=== PATIENT | female | born 1990 | race Caucasian/White ===

== ENCOUNTER 2016-08-01 11:36 | Emergency (ER) | payer SELFPAY ==
[~2016-08-01] VITALS: Ht 165.1 cm; Wt 68.2 kg
[~2016-08-01 11:36] MED LIST: ALBUTEROL SULFAT3 M3 INH; ALBUTEROL0.09 MG/A1 IH; ALBUTEROL0.83 MG/ML IH; AMBIEN5 MG PO; AMOXICILLIN 50500 MG PO; AMOXICILLIN 8751 TAB PO; AMOXICILLIN/CLA1 TA1; ASMANEX INHALER; AUGMENTIN; CEPHALEXIN500 M1 PO; CLEOCIN HCL300 MG PO; DOXYCYCLINE PO; FERROUS SULFATE65 MG PO; HUMALOG100 U/ML SC; HUMALOG100 U/ML SQ; IMPLANON68 MG ID; INSULIN HUMA100 U/ML SC; LANTIS SQ; LANTUS100 U/ML SC; LANTUS100 U/ML SQ; LORTAB 5/500 501 TAB PO; MOTRIN 600600 MG/TAB PO; NAPROSYN500 MG PO; NORCO 325 MG-51 TAB PO; OMNICEF 300MG300 MG PO; PERCOCET 325 MG1 TA2 PO; PNV-DHA1 SGL PO; PREDNISONE20 MG PO; PRENATAL1 TA1; PRINIVIL2.5 MG PO; REGLAN10 MG PO; SLOW FE45 MG PO; TUMS500 MG PO; VENTOLIN0.09 MG IH; VIBRAMYCIN HYC100 MG PO; XOPENEX 0.0.63 MG/3 IH; ZANTAC 7575 MG PO; ZITHROMAX TRI-500 MG PO; ZITHROMAX Z PA250 MG PO; ZOFRAN 4MG T4 MG/TAB PO; ZOFRAN4 M1 PO; ZOMIG 2.5MG2.5 MG PO; ZOVIRAX51; [UNRECOGNIZED DRUG - REMARK]
[2016-08-01 11:39] VITALS: TEMP 97.7
[2016-08-01 12:25] LABS: BASO # 0.1 (0.0-0.2); BASO % 0.7 % (0.0-2.0); EOS % 0.2 % (0-4.0); GRAN # 10.7 (1.4-6.5); GRAN % 80.9 % (42.2-75.2); HEMATOCRIT 39.8 % (37.0-47.0); LYMPH # 1.8 (1.2-3.4); LYMPH % 13.9 % (20.0-51.0); MEAN CELL VOLUME 79 fl (80.0-100.0); MEAN CORPUSCULAR HEMOGLOBIN 26 pg (27.0-31.0); MEAN CORPUSCULAR HGB CONC 33 g/dl (33.0-37.0); MEAN PLATELET VOLUME 10.8 fl (7.4-10.4); MONO # 0.5 (0.1-0.6); PLATELET COUNT 309 K/mm3 (130-400); RED BLOOD COUNT 5.02 M/mm3 (4.10-5.30); REDCELL DISTRIBUTION WIDTH-CV 14.8 % (11.5-14.5); WHITE BLOOD COUNT 13.2 K/mm3 (4.8-10.8)
[2016-08-01 12:40] LABS: PH 5 (5-8); URINE APPEARANCE Hazy; URINE BACTERIA None Seen /hpf; URINE BILIRUBIN Negative (NEGATIVE); URINE BLOOD Negative (NEGATIVE); URINE COLOR Yellow; URINE GLUCOSE Negative (NEGATIVE); URINE KETONE Trace (NEGATIVE); URINE UROBILINOGEN Negative (NEGATIVE)
[2016-08-01 12:46] LABS: ADJUSTED CALCIUM 8.7 mg/dL (8.4-10.2); ALANINE AMINOTRANSFERASE 24 U/L (9-52); ALBUMIN 4.6 gm/dL (3.5-5.0); ALKALINE PHOSPHATASE 92 U/L (50-136); ANION GAP 14 mmol/L (7-16); BILIRUBIN,TOTAL 0.5 mg/dL (0.0-1.0); BLOOD UREA NITROGEN 10 mg/dL (7-17); CALCIUM 9.2 mg/dL (8.4-10.2); CARBON DIOXIDE 24 mmol/L (22-30); CHLORIDE 101 mmol/L (98-107); CREATININE, serum 0.56 mg/dL (0.52-1.25); GLUCOSE 54 mg/dL (74-106); POTASSIUM 3.9 mmol/L (3.4-5.0); SODIUM 139 mmol/L (137-145)
[2016-08-01] MEDS ORDERED: ZOFRAN 4MG T4 MG/TAB PO (14:42)
[2016-08-01 14:53] VITALS: BP 110/69; PULSE 82
== END 2016-08-01 14:56 | disposition home or self-care (01) ==
LOC: COL.ER 11:36
PROVIDERS: Nurse Practitioner
DX: E10.9 Type 1 diabetes mellitus without complications (principal); Z79.4 Long term (current) use of insulin; R11.10 Vomiting, unspecified; N39.0 Urinary tract infection, site not specified
CPT/HCPCS: J0696; J1200; J1885; J2405; J2765; J3010; J7030

== ENCOUNTER 2016-08-27 23:48 | Emergency (ER) | payer SELFPAY ==
[~2016-08-27] VITALS: Ht 165.1 cm; Wt 72.7 kg
[2016-08-27 23:52] VITALS: TEMP 98.5
[2016-08-28 00:17] LABS: BASO # 0.1 (0.0-0.2); BASO % 0.7 % (0.0-2.0); EOS # 0.2 (0.0-0.7); EOS % 1.5 % (0-4.0); GRAN # 7.2 (1.4-6.5); GRAN % 54.7 % (42.2-75.2); LYMPH # 4.5 (1.2-3.4); LYMPH % 34.5 % (20.0-51.0); MEAN CELL VOLUME 79 fl (80.0-100.0); MEAN CORPUSCULAR HGB CONC 33 g/dl (33.0-37.0); MEAN PLATELET VOLUME 10.8 fl (7.4-10.4); MONO # 1.1 (0.1-0.6); MONO % 8.2 % (1.7-9.3); PLATELET COUNT 293 K/mm3 (130-400); RED BLOOD COUNT 4.49 M/mm3 (4.10-5.30); REDCELL DISTRIBUTION WIDTH-CV 14.9 % (11.5-14.5); WHITE BLOOD COUNT 13.1 K/mm3 (4.8-10.8)
[2016-08-28 00:19] LABS: HEMATOCRIT 35.5 % (37.0-47.0); HEMOGLOBIN 11.6 g/dl (12.5-16.0); MEAN CORPUSCULAR HEMOGLOBIN 26 pg (27.0-31.0)
[2016-08-28 00:27] LABS: CALCIUM 8.8 mg/dL (8.4-10.2); CREATININE, serum 0.49 mg/dL (0.52-1.25); POTASSIUM 3.3 mmol/L (3.4-5.0)
[2016-08-28 00:34] LABS: PH 6 (5-8); URINE APPEARANCE Clear; URINE BACTERIA None Seen /hpf; URINE BILIRUBIN Negative (NEGATIVE); URINE BLOOD Negative (NEGATIVE); URINE COLOR Yellow; URINE GLUCOSE Negative (NEGATIVE); URINE KETONE Trace (NEGATIVE); URINE RBC 0-2 /hpf; URINE WBC 0-2 /hpf
[2016-08-28] MEDS ORDERED: ULTRAM 50MG TAB50 MG PO (01:27)
[2016-08-28 01:38] VITALS: BP 108/62; PULSE 89
== END 2016-08-28 01:40 | disposition home or self-care (01) ==
LOC: COL.ER 23:48
PROVIDERS: Emergency Medicine
DX: R10.2 Pelvic and perineal pain (principal); E11.9 Type 2 diabetes mellitus without complications; E78.00 Pure hypercholesterolemia, unspecified; F17.210 Nicotine dependence, cigarettes, uncomplicated; Z79.4 Long term (current) use of insulin; Z87.19 Personal history of other diseases of the digestive system; Z98.51 Tubal ligation status; Z98.890 Other specified postprocedural states
CPT/HCPCS: J1170; J1885; Q9967

== ENCOUNTER 2017-11-18 21:31 | Emergency (ER) | payer OTHER ==
[~2017-11-18] VITALS: Ht 165.1 cm; Wt 65.9 kg
[~2017-11-18 21:31] MED LIST changes: +ULTRAM 50MG TAB50 MG PO
[2017-11-18 21:34] VITALS: TEMP 98.2
[2017-11-18] MEDS ORDERED: PREDNISONE20 MG PO (22:27)
[2017-11-18] MEDS ORDERED: CEPHALEXIN500 M1 PO (22:27)
[2017-11-18 22:45] VITALS: BP 111/69; PULSE 93
[2017-11-18] MEDS ORDERED: LEVEMIR FLEX100 U/ML SQ (22:48)
== END 2017-11-18 22:55 | disposition home or self-care (01) ==
LOC: COL.ER 21:31
DX: T63.441A Toxic effect of venom of bees, accidental (unintentional), initial encounter (principal); M79.89 Other specified soft tissue disorders; E10.9 Type 1 diabetes mellitus without complications; D64.9 Anemia, unspecified; F17.210 Nicotine dependence, cigarettes, uncomplicated
CPT/HCPCS: J7512

== ENCOUNTER 2018-01-06 19:36 | Emergency (ER) | payer OTHER ==
[~2018-01-06] VITALS: Ht 165.1 cm; Wt 65.9 kg
[~2018-01-06 19:36] MED LIST changes: +LEVEMIR FLEX100 U/ML SQ
[2018-01-06 19:39] VITALS: BP 135/77; TEMP 98.3
[2018-01-06] MEDS ORDERED: PREDNISONE20 MG PO (20:02)
[2018-01-06 20:17] VITALS: PULSE 102
[2018-01-06] MEDS ORDERED: ZYRTEC 10MG10 MG PO (20:20)
== END 2018-01-06 20:17 | disposition home or self-care (01) ==
LOC: COL.ER 19:36
DX: R21 Rash and other nonspecific skin eruption (principal); F17.210 Nicotine dependence, cigarettes, uncomplicated; E11.9 Type 2 diabetes mellitus without complications; Z79.4 Long term (current) use of insulin; Z98.890 Other specified postprocedural states; Z98.51 Tubal ligation status

== ENCOUNTER 2018-03-29 12:39 | Emergency (ER) | payer BC ==
[~2018-03-29] VITALS: Ht 165.1 cm; Wt 63.6 kg
[~2018-03-29 12:39] MED LIST changes: +ZYRTEC 10MG10 MG PO
[2018-03-29 13:12] LABS: COLLECTION METHOD CLEAN CATCH
[2018-03-29] MEDS ORDERED: ZOFRAN ODT4 MG PO ×2 (13:17→15:21)
[2018-03-29] MEDS ORDERED: PHENERGAN 25 TA25 MG PO ×2 (13:17→15:21)
[2018-03-29 13:19] LABS: BASO % 0.4 % (0.0-2.0); EOS % 0.4 % (0-4.0); GRAN # 5.7 (1.4-6.5); GRAN % 81.6 % (42.2-75.2); HEMATOCRIT 39.5 % (37.0-47.0); HEMOGLOBIN 12.5 g/dl (12.5-16.0); LYMPH # 0.9 (1.2-3.4); LYMPH % 13.4 % (20.0-51.0); MEAN CELL VOLUME 78 fl (80.0-100.0); MEAN CORPUSCULAR HEMOGLOBIN 25 pg (27.0-31.0); MEAN CORPUSCULAR HGB CONC 32 g/dl (33.0-37.0); MEAN PLATELET VOLUME 10.9 fl (7.4-10.4); MONO # 0.3 (0.1-0.6); MONO % 4.1 % (1.7-9.3); PLATELET COUNT 296 K/mm3 (130-400); RED BLOOD COUNT 5.04 M/mm3 (4.10-5.30); REDCELL DISTRIBUTION WIDTH-CV 16.7 % (11.5-14.5)
[2018-03-29 13:29] LABS: ALBUMIN 3.8 gm/dL (3.5-5.0); BILIRUBIN,TOTAL 0.2 mg/dL (0.0-1.0); CALCIUM 8.7 mg/dL (8.4-10.2); CREATININE, serum 0.6 mg/dL (0.52-1.25); POTASSIUM 3.7 mmol/L (3.4-5.0); TOTAL PROTEIN 6.8 gm/dL (6.4-8.2)
[2018-03-29 13:42] LABS: MUCOUS Present /lpf; PH 5 (5-8); URINE APPEARANCE Cloudy; URINE BACTERIA Rare /hpf; URINE BILIRUBIN Positive (NEGATIVE); URINE BLOOD 2+ (NEGATIVE); URINE COLOR Amber; URINE GLUCOSE Negative (NEGATIVE); URINE KETONE Trace (NEGATIVE); URINE LEUKOCYTE ESTERASE Negative (NEGATIVE); URINE NITRATE Negative (NEGATIVE); URINE PROTEIN(semi-quant) 2+ (NEGATIVE)
[2018-03-29 14:19] VITALS: TEMP 99.1
[2018-03-29 16:30] VITALS: BP 110/58; PULSE 114
== END 2018-03-29 16:32 | disposition home or self-care (01) ==
LOC: COL.ER 12:39
PROVIDERS: Emergency Medicine
DX: J06.9 Acute upper respiratory infection, unspecified (principal); R19.7 Diarrhea, unspecified; R11.2 Nausea with vomiting, unspecified; E10.9 Type 1 diabetes mellitus without complications; F17.210 Nicotine dependence, cigarettes, uncomplicated
CPT/HCPCS: J2060; J2405; J2550; J7030

== ENCOUNTER 2019-09-06 20:33 | Emergency (ER) | payer SELFPAY ==
[~2019-09-06] VITALS: Ht 165.1 cm; Wt 63.6 kg
[~2019-09-06 20:33] MED LIST changes: +PHENERGAN 25 TA25 MG PO; +ZOFRAN ODT4 MG PO
[2019-09-06 20:40] VITALS: TEMP 98
[2019-09-06] MEDS ORDERED: SYNTHROID 0.0.025 MG PO (20:48)
[2019-09-06 21:04] LABS: COLLECTION METHOD CLEAN CATCH
[2019-09-06 21:07] LABS: BASO # 0.1 (0.0-0.2); BASO % 0.8 % (0.0-2.0); EOS # 0.2 (0.0-0.7); EOS % 2.9 % (0-4.0); GRAN # 2.9 (1.4-6.5); GRAN % 35.4 % (42.2-75.2); LYMPH # 4.5 (1.2-3.4); LYMPH % 54.5 % (20.0-51.0); MEAN CELL VOLUME 75 fl (80.0-100.0); MEAN CORPUSCULAR HGB CONC 31 g/dl (33.0-37.0); MEAN PLATELET VOLUME 10.3 fl (7.4-10.4); MONO # 0.5 (0.1-0.6); MONO % 6.3 % (1.7-9.3); PLATELET COUNT 302 K/mm3 (130-400); RED BLOOD COUNT 4.17 M/mm3 (4.10-5.30); REDCELL DISTRIBUTION WIDTH-CV 17.7 % (11.5-14.5)
[2019-09-06 21:14] LABS: HEMATOCRIT 31.2 % (37.0-47.0); HEMOGLOBIN 9.8 g/dl (12.5-16.0); MEAN CORPUSCULAR HEMOGLOBIN 24 pg (27.0-31.0)
[2019-09-06 21:16] LABS: BILIRUBIN,TOTAL 0.3 mg/dL (0.0-1.0); CALCIUM 8.7 mg/dL (8.4-10.2); CREATININE, serum 0.62 (0.52-1.25); MUCOUS Present /lpf; PH 5 (5-8); POTASSIUM 3.5 mmol/L (3.4-5.0); SQUAMOUS EPITHELIAL None Seen /hpf; TOTAL PROTEIN 6.9 gm/dL (6.4-8.2); URINE APPEARANCE Cloudy; URINE BACTERIA None Seen /hpf; URINE BILIRUBIN Negative (NEGATIVE); URINE BLOOD 3+ (NEGATIVE); URINE COLOR Red; URINE GLUCOSE Negative (NEGATIVE); URINE KETONE Negative (NEGATIVE); URINE LEUKOCYTE ESTERASE Negative (NEGATIVE); URINE NITRATE Negative (NEGATIVE); URINE PROTEIN(semi-quant) 2+ (NEGATIVE); URINE RBC >50 /hpf
[2019-09-06 21:35] VITALS: BP 110/70; PULSE 80
[2019-09-06] MEDS ORDERED: SPRINTEC 35 MCG1 TAB PO (21:55)
== END 2019-09-06 22:03 | disposition home or self-care (01) ==
LOC: COL.ER 20:33
PROVIDERS: Emergency Medicine
DX: N92.0 Excessive and frequent menstruation with regular cycle (principal); E11.9 Type 2 diabetes mellitus without complications; Z98.51 Tubal ligation status; Z87.891 Personal history of nicotine dependence; Z79.4 Long term (current) use of insulin
CPT/HCPCS: J1885; J7030

== ENCOUNTER 2021-09-27 21:35 | Emergency (ER) | payer SELFPAY ==
[~2021-09-27] VITALS: Ht 165.1 cm; Wt 65.9 kg
[~2021-09-27 21:35] MED LIST changes: +SPRINTEC 35 MCG1 TAB PO; +SYNTHROID 0.0.025 MG PO
[2021-09-27 21:57] LABS: BASO # 0.1 K/mm3 (0.0-0.2); BASO % 0.6 % (0.0-2.0); EOS % 0.4 % (0.0-4.0); GRAN # 3.2 K/mm3 (1.4-6.5); GRAN % 37.5 % (42.2-75.2); HEMOGLOBIN 12.3 g/dl (12.5-16.0); LYMPH # 4.9 K/mm3 (1.2-3.4); MEAN CELL VOLUME 89 fl (80.0-100.0); MEAN CORPUSCULAR HEMOGLOBIN 30 pg (27-31); MEAN CORPUSCULAR HGB CONC 34 g/dl (33.0-37.0); MEAN PLATELET VOLUME 10.6 fl (7.4-10.4); MONO # 0.3 K/mm3 (0.1-0.6); MONO % 3.9 % (1.7-9.3); PLATELET COUNT 374 K/mm3 (130-400); RED BLOOD COUNT 4.07 M/mm3 (4.10-5.30); REDCELL DISTRIBUTION WIDTH-CV 12.9 % (11.5-14.5)
[2021-09-27 22:02] LABS: HEMATOCRIT 36.1 % (37.0-47.0)
[2021-09-27 22:14] LABS: ALBUMIN 3.7 gm/dL (3.5-5.0); BILIRUBIN,TOTAL 0.2 mg/dL (0.2-1.2); CALCIUM 9.2 mg/dL (8.4-10.2); CREATININE, serum 1.01 mg/dL (0.57-1.11); POTASSIUM 3.3 mmol/L (3.5-4.5)
[2021-09-27 22:49] LABS: COLLECTION METHOD CLEAN CATCH
[2021-09-27 22:55] LABS: PH 6 (5-8); SQUAMOUS EPITHELIAL 0-2 /hpf (0-10); URINE APPEARANCE Clear (CLEAR/HAZY); URINE BACTERIA None Seen /hpf (NONE SEEN); URINE BLOOD 3+ (NEGATIVE); URINE COLOR Yellow (YELLOW); URINE GLUCOSE 3+ (NEGATIVE); URINE KETONE Negative (NEGATIVE); URINE NITRATE Negative (NEGATIVE); URINE PROTEIN(semi-quant) Negative (NEGATIVE); URINE RBC 20-50 /hpf (0-2); URINE UROBILINOGEN Negative (NEGATIVE)
[2021-09-28 01:53] LABS: CALCIUM 8.5 mg/dL (8.4-10.2); CREATININE, serum 0.63 mg/dL (0.57-1.11); POTASSIUM 3.9 mmol/L (3.5-4.5)
[2021-09-28] MEDS ORDERED: TORADOL 10MG TA10 MG PO (02:01)
[2021-09-28] MEDS ORDERED: ZOFRAN 4MG T4 MG/TAB PO (02:01)
[2021-09-28] MEDS ORDERED: NORCO 325 MG-51 TAB PO (02:01)
[2021-09-28] MEDS ORDERED: AMOXICILLIN 8751 TAB PO (02:01)
[2021-09-28 02:17] VITALS: BP 105/67; PULSE 87
== END 2021-09-28 02:17 | disposition home or self-care (01) ==
LOC: COL.ER 21:35
PROVIDERS: Emergency Medicine
DX: K52.9 Noninfective gastroenteritis and colitis, unspecified (principal); E10.9 Type 1 diabetes mellitus without complications; R74.02 Elevation of levels of lactic acid dehydrogenase [LDH]; Z32.02 Encounter for pregnancy test, result negative; Z79.4 Long term (current) use of insulin; Z28.310 Unvaccinated for COVID-19
CPT/HCPCS: J1170; J1815; J2405; J2543; J7030; J7120; Q9967

== ENCOUNTER 2021-11-21 07:28 | Day surgery (SDC) | payer SELFPAY ==
[~2021-11-21] VITALS: Ht 165.1 cm; Wt 68.7 kg
[~2021-11-21 07:28] MED LIST changes: +TORADOL 10MG TA10 MG PO
[2021-11-21] MEDS ORDERED: SYNTHROID0.125 MG/T PO (08:17)
[2021-11-21] MEDS ORDERED: BENTYL 10MG10 MG/CAP PO (08:18)
[2021-11-21 09:00] VITALS: BP 102/70; PULSE 105; TEMP 97.2
[2021-11-21 09:15] VITALS: BP 99/65; PULSE 91; TEMP 98.2
--- NOTE | 2021-11-21 09:15 | NUR ---
PATIENT TO ROOM 7 VIA CART. ASSIST X 1 TO CHAIR. VITAL SIGNS WNL. GLUCOSE IS 163. PATIENT REQUESTS DIET COKE AND JELLO. AT BEDSIDE. WILL CONTINUE TO MONITOR.
[2021-11-21 09:30] VITALS: BP 111/73; PULSE 85
--- NOTE | 2021-11-21 09:30 | NUR ---
VITAL SIGNS WNL. PATIENT DENIES NAUSEA OR PAIN. DOCTOR AT BEDSIDE. ALSO AT BEDSIDE. WILL CONTINUE TO MONITOR.
[2021-11-21 09:45] VITALS: BP 110/75; PULSE 87
--- NOTE | 2021-11-21 09:45 | NUR ---
PATIENT IS READY FOR DISCHARGE. DISCHARGE INSTRUCTIONS REVIEWED WITH PATIENT AND . IV REMOVED. LAST SET OF VITALS WNL. WILL DISCHARGE ONCE SHE'S READY.
== END 2021-11-21 10:00 | disposition home or self-care (01) ==
LOC: SDCO 07:28
DX: K90.0 Celiac disease (principal); K29.80 Duodenitis without bleeding; K20.90 Esophagitis, unspecified without bleeding; K29.50 Unspecified chronic gastritis without bleeding; K63.89 Other specified diseases of intestine; E10.9 Type 1 diabetes mellitus without complications; F17.210 Nicotine dependence, cigarettes, uncomplicated; Z79.4 Long term (current) use of insulin
CPT/HCPCS: J2704; J7030